=== PATIENT | female | born 1990 | race Caucasian/White ===

== ENCOUNTER 2017-10-03 09:09 | Emergency (ER) | payer BC, OTHER ==
[2017-10-03] MEDS ORDERED: Acetaminophen 500 MG Tab PO ONE (09:54)
--- NOTE | 2017-10-03 09:59 | EDM.PDOC ---
ED HPI GENERAL MEDICAL PROBLEM - General Chief Complaint: Respiratory Problem Stated Complaint: ACHES/COUGH/EAR PAIN Time Seen by Provider: 10/03/17 09:45 Source of Information: Reports: Patient History Limitations: Reports: No Limitations - History of Present Illness INITIAL COMMENTS - FREE TEXT/NARRATIVE: 27 yo female presents with body aches, fever, cough, congestion, and rhinorrhea. Has cold sx's for several days, the most of the other symptoms began last early evening. Did not have a flu shot. Does not have a hx of HTN, is taking Sudafed currently for her sx's. Onset Date: 10/02/17 Duration: Hour(s):, Constant, Getting Worse Location: Reports: Generalized Quality: Reports: Ache Severity: Moderate Improves with: Reports: None Worsens with: Reports: None Context: Reports: Other (no influenza vaccine) Associated Symptoms: Reports: Cough, Fever/Chills, Shortness of Breath. Denies : Nausea/Vomiting, Rash Treatments [employer]PER[employer]OR: Reports: Other (see below) (Sudafed orally) Generalized Pain Score (Numeric/FACES): 10 - Related Data Allergies Allergy/AdvReac Type Severity Reaction Status Date / Time No Known Allergies Allergy Verified 10/03/17 09:33 Home Meds: Home Meds NK [No Known Home Meds] 10/03/17 [History] Past Medical History Endocrine/Metabolic History: Reports: Obesity/BMI 30+ Dermatologic History: Reports: Psoriasis - Infectious Disease History Infectious Disease History: Reports: Chicken Pox Social & Family History - Tobacco Use Smoking Status *Q: Never Smoker - Caffeine Use Caffeine Use: Reports: Soda - Recreational Drug Use Recreational Drug Use: No ED ROS GENERAL - Review of Systems Review Of Systems: See Below Constitutional: Reports: Fever, Chills, Malaise, Fatigue HEENT: Reports: Ear Pain, Rhinitis Respiratory: Reports: Shortness of Breath, Cough. Denies: Wheezing, Pleuritic Chest Pain, Sputum Cardiovascular: Reports: No Symptoms Endocrine: Reports: No Symptoms GI/Abdominal: Reports: No Symptoms : Reports: No Symptoms Musculoskeletal: Reports: No Symptoms Skin: Reports: No Symptoms Neurological: Reports: No Symptoms Psychiatric: Reports: No Symptoms ED EXAM, GENERAL - Physical Exam Exam: See Below Exam Limited By: No Limitations General Appearance: Alert, WD/WN, No Apparent Distress, Obese Eye Exam: Bilateral Eye: Normal Inspection Ears: Normal External Exam, Normal Canal, Hearing Grossly Normal, Normal TMs Ear Exam: Bilateral Ear: Auricle Normal, Canal Normal, TM normal Nose: No Blood, Clear Rhinorrhea. No: Nasal Flaring Throat/Mouth: Normal Inspection, Normal Lips, Normal Oropharynx, Normal Voice, No Airway Compromise Head: Atraumatic, Normocephalic Neck: Normal Inspection, Supple, Non-Tender Respiratory/Chest: No Respiratory Distress, Lungs Clear, Normal Breath Sounds, No Accessory Muscle Use, Other (dry cough) Cardiovascular: Regular Rate, Rhythm, No Edema, Tachycardia Back Exam: No: CVA Tenderness (R), CVA Tenderness (L) Extremities: Normal Inspection, Normal Range of Motion, Non-Tender, No Pedal Edema Neurological: Alert, Oriented, CN II-XII Intact, Normal Cognition, No Motor/ Sensory Deficits Psychiatric: Normal Affect, Normal Mood Skin Exam: Warm, Dry, Intact, Normal Color, No Rash Lymphatic: No Adenopathy Course - Vital Signs Last Recorded V/S: Last Vital Signs Temp 38.1 C 10/03/17 09:30 Pulse 118 H 10/03/17 09:30 Resp 20 10/03/17 09:30 BP 183/100 H 10/03/17 09:30 Pulse Ox 96 10/03/17 09:30 - Orders/Labs/Meds Labs: Laboratory Tests 10/03/17 Range/Units 10:38 WBC 6.9 (4.5-11.0) K/uL RBC 4.58 (3.30-5.50) M/uL Hgb 13.6 (12.0-15.0) g/dL Hct 40.9 (36.0-48.0) % MCV 89 (80-98) fL MCH 30 (27-31) pg MCHC 33 (32-36) % Plt Count 216 (150-400) K/uL Meds: Medications Discontinued Medications Generic Name Dose Route Start Last Admin Trade Name Kaushalq PRN Reason Stop Dose Admin Acetaminophen 1,000 mg 10/03/17 09:54 10/03/17 10:04 Tylenol Extra Strength PO 10/03/17 09:55 1,000 mg ONETIME ONE Administration Departure - Departure Time of Disposition: 11:05 Disposition: Home, Self-Care 01 Condition: Good Clinical Impression: Influenza-like illness - Discharge Information Referrals: PCP,None [Primary Care Provider] - Forms: ED Department Discharge
== END 2017-10-03 11:17 | disposition home or self-care (01) ==
LOC: JP.ED 09:09
DX: J11.1 Influenza due to unidentified influenza virus with other respiratory manifestations (principal)
CPT/HCPCS: 36415; 85027; 87804; 99284; A9270